=== PATIENT | male | born 1990 | race Caucasian/White ===

== ENCOUNTER 2016-06-04 12:27 | Emergency (ER) | payer OTHER ==
[~2016-06-04] VITALS: Ht 170.2 cm; Wt 66.4 kg
[2016-06-04 12:30] VITALS: TEMP 36.6; Ht 170.2 cm; Wt 66.4 kg
--- NOTE | 2016-06-04 13:44 | EMERGENCY ROOM VISIT NOTE ---
History First contact with patient: 13:14 Chief Complaint: CARDIAC ASSESSMENT Stated Complaint: CHEST DISCOMFORT/LUMP Nursing Triage Summary: Pt c/o lump on xyphoid process noticed it 1 month ago Pt c/o chest discomfort since 2010 Pt reports he has had ekgs which were neg pain is not getting better History of Present Illness The patient is a 26 year old male who presents to the Emergency Room with complaints of chest discomfort and a lump on his chest. The patient reports that he has had chest discomfort and difficulty taking a deep breath for the past 6 years. He states that one month ago, he noticed a lump in the center of his chest. He states it is slightly painful to touch at times. He states this causes a dull discomfort in his chest. He has never been seen by another provider for this. He does not have a primary care provider. He denies palpitations or syncopal episodes. He denies any lightheadedness denies any abdominal pain, nausea or vomiting. Review of Systems A complete 10-point Review of Systems was discussed with the patient, with pertinent positives and negatives listed in the History of Present Illness. All remaining Review of Systems questions can be considered negative unless otherwise specified. Social History Smoking Status: Never Smoker Current/Historical Medications No Active Prescriptions or Reported Meds Allergies Coded Allergies: Shellfish Allergy (Unverified Allergy, Severe, THROAT & LIP SWELLING, 06/04) Physical Exam Vital Signs Date Time Temp Pulse Resp B/P Pulse Ox O2 Delivery O2 Flow Rate FiO2 06/04/16 16:23 75 18 119/75 99 Room Air 06/04/16 14:43 73 16 111/69 97 Room Air 06/04/16 13:47 80 06/04/16 13:40 76 16 121/77 97 Room Air 06/04/16 13:34 Room Air 06/04/16 12:32 Room Air 06/04/16 12:30 36.6 78 18 126/82 96 Room Air Physical Exam VITALS: Vitals are noted on the nurse's note and reviewed by myself. Vital signs stable. GENERAL: This is a 26-year-old male, in no acute distress, nondiaphoretic, well- developed well-nourished. SKIN: Capillary reflex less than 2 seconds. HEENT: Normocephalic. PERRLA. EOMI. Nares patent. Mucous membranes moist. Neck is supple without nuchal rigidity. HEART: Regular rate and rhythm without murmurs gallops or rubs. LUNGS: Clear to auscultation bilaterally without wheezes, rales or rhonchi. No retractions or accessory muscle use. ABDOMEN: Positive bowel sounds x 4. Soft, nontender to palpation. MUSCULOSKELETAL: Mild pectus carinatum. NEURO: Patient was alert and oriented to person place and time. Medical Decision & Procedures ER Provider Diagnostic Interpretation: TWO VIEW CHEST IMPRESSION: No active disease in the chest. CT OF THE CHEST WITH IV CONTRAST IMPRESSION: 1. No evidence of focal pulmonary consolidation 2. No evidence of pathologic adenopathy 3. 4 mm noncalcified right upper lobe pulmonary nodule. In the absence of a primary malignancy, this is of doubtful clinical significance in a patient of this age. ABDOMEN AND PELVIS CT WITH IV CONTRAST IMPRESSION: No significant abnormality identified within the abdomen or pelvis. Laboratory Results 06/04/16 13:38 Red Blood Count 5.29, Mean Corpuscular Volume 83.7, Mean Corpuscular Hemoglobin 30.2, Mean Corpuscular Hemoglobin Concent 36.1, Mean Platelet Volume 10.4, Neutrophils (%) (Auto) 37.3, Lymphocytes (%) (Auto) 49.3, Monocytes (%) (Auto) 10.1, Eosinophils (%) (Auto) 2.2, Basophils (%) (Auto) 1.1, Neutrophils # (Auto ) 1.00, Lymphocytes # (Auto) 1.32, Monocytes # (Auto) 0.27, Eosinophils # (Auto ) 0.06, Basophils # (Auto) 0.03 06/04/16 13:38 Test 06/04/16 13:38 06/04/16 13:58 White Blood Count 2.68 K/uL (4.8-10.8) Red Blood Count 5.29 M/uL (4.7-6.1) Hemoglobin 16.0 g/dL (14.0-18.0) Hematocrit 44.3 % (42-52) Mean Corpuscular Volume 83.7 fL (80-100) Mean Corpuscular Hemoglobin 30.2 pg (25-34) Mean Corpuscular Hemoglobin Concent 36.1 g/dl (32-36) Platelet Count 278 K/uL (130-400) Mean Platelet Volume 10.4 fL (7.4-10.4) Neutrophils (%) (Auto) 37.3 % Lymphocytes (%) (Auto) 49.3 % Monocytes (%) (Auto) 10.1 % Eosinophils (%) (Auto) 2.2 % Basophils (%) (Auto) 1.1 % Neutrophils # (Auto) 1.00 K/uL (1.4-6.5) Lymphocytes # (Auto) 1.32 K/uL (1.2-3.4) Monocytes # (Auto) 0.27 K/uL (0.11-0.59) Eosinophils # (Auto) 0.06 K/uL (0-0.5) Basophils # (Auto) 0.03 K/uL (0-0.2) RDW Standard Deviation 38.0 fL (36.4-46.3) RDW Coefficient of Variation 12.7 % (11.5-14.5) Immature Granulocyte % (Auto) 0.0 % Immature Granulocyte # (Auto) 0.00 K/uL (0.00-0.02) Peripheral Blood Smear Path Consult Anion Gap 10.0 mmol/L (3-11) Est Creatinine Clear Calc Drug Dose 110.2 ml/min Estimated GFR () 127.5 Estimated GFR (Non- 110.0 BUN/Creatinine Ratio 17.0 (10-20) Calcium Level 9.2 mg/dl (8.5-10.1) Total Bilirubin 0.6 mg/dl (0.2-1) Aspartate Amino Transf (AST/SGOT) 10 U/L (15-37) Alanine Aminotransferase (ALT/SGPT) 14 U/L (12-78) Alkaline Phosphatase 92 U/L (45-117) Troponin I < 0.015 ng/ml (0-0.045) Total Protein 7.7 gm/dl (6.4-8.2) Albumin 4.4 gm/dl (3.4-5.0) Globulin 3.3 gm/dl (2.5-4.0) Albumin/Globulin Ratio 1.3 (0.9-2) Thyroid Stimulating Hormone (TSH) 1.890 uIu/ml (0.300-4.500) D-Dimer < 190 ug/L FEU (0-500) Lipase 92 U/L (73-393) ECG Rate (beats per minute): 65 Rhythm: normal sinus Findings: no acute ischemic change, no ectopy Comparison ECG Date: no prior available Medical Decision Differential diagnosis includes acute coronary syndrome, pulmonary embolism, pneumothorax, pericarditis, myocarditis, endocarditis, anxiety, musculoskeletal pain, malignancy, GERD, costochondritis, among others. The patient was evaluated as above. Labs were drawn and IV access was obtained. Imaging studies were performed and read by radiology as above. The patient was reassessed multiple times during their stay in the emergency department and remained in stable condition. The patient is a 26-year-old male who presents today complaining of chest plan. Labs revealed a mild leukopenia with no anemia or concerning electrolyte abnormalities. Troponin was not elevated. D-dimer was not elevated. EKG was interpreted by myself and showed a normal sinus rhythm with no ischemia or ectopy. Chest x-ray was unremarkable. CT of the chest and abdomen/pelvis were performed and read by radiology with no acute findings. The patient was encouraged to take Prilosec and follow-up with his primary care provider. Based on the patient's presentation, lab results, and imaging studies, I feel the patient is stable for outpatient treatment. Discharge instructions were reviewed with the patient. The patient verbalized understanding of my assessment and treatment plan and was discharged home in good condition. Impression Primary Impression: Non-cardiac chest pain Departure Information Dispostion Home / Self-Care Condition GOOD Prescriptions No Active Prescriptions or Reported Meds Referrals No Doctor, Assigned (PCP) Rajeev Block D.O. Patient Instructions [facility] Additional Instructions You have been treated in the Emergency Department for your suspected Gastroesophageal Reflux Disease or GERD for short. You should take Prilosec, 40 mg daily before food. This medication is over the counter. This is a drug that will help with any possible indigestion that might be contributing to your pain/discomfort. You should take this medicine EVERY day for the best results. This medicine is not intended to be used for immediate relief of symptoms, but rather to reduce the risk of recurrence of symptoms. You can consider using TUMS for relief of any indigestion that you might be experiencing. This drug is fast acting and can be used for immediate relief of your indigestion symptoms. You should eat a bland diet for the next few days. Some suggested bland dietary foods: Bananas, Rice, Applesauce, [place], or Boiled Chicken. These foods are easy to digest and help you to recover at a faster rate. All meals for the next few days should be small to track repairer helper in bowel rest. For pain control, you can use the following [id number] medicines (if >12 yo): - Regular strength (325mg/tab) Tylenol (acetaminophen) 2 tabs every 4-6 hours as needed. Do not exceed 12 tablets in a 24 hour period. Avoid taking more than 4 grams (4000 mg) of Tylenol per day. This includes any other sources of acetaminophen you may take on a regular basis. - Regular strength (200 mg/tab) Advil (ibuprofen) 1-2 tabs every 4-6 hours as needed. Do not exceed a dose of 3200 mg per day. You should schedule a follow-up appointment with your Primary Care Provider in 2 -3 days for further evaluation from today's Emergency Department visit. Your white blood cell count was found to be low. You should follow up with a forming roll operator regarding this. Return to the Emergency Department if your current symptoms worsen despite treatment course outlined above, or if you develop any of the following symptoms : worsening abdominal pain, associated chest or back pain, worsening nausea/ vomiting, dizziness, shortness of breath, blood in your vomit, or fainting.
[2016-06-04 13:54] LABS: BASO % 1.1 %; BASO ABS # 0.03 K/uL (0-0.2); COMPLETE YES; EOS % 2.2 %; HEMATOCRIT 44.3 % (42-52); LYMPH % 49.3 %; LYMPH ABS # 1.32 K/uL (1.2-3.4); MEAN CELL VOLUME 83.7 fL (80-100); MEAN CORPUSCULAR HEMOGLOBIN 30.2 pg (25-34); MEAN CORPUSCULAR HGB CONC 36.1 g/dl (32-36); MEAN PLATELET VOLUME 10.4 fL (7.4-10.4); MONO % 10.1 %; NEUT % 37.3 %; PLATELET COUNT 278 K/uL (130-400); RED BLOOD COUNT 5.29 M/uL (4.7-6.1); WHITE BLOOD COUNT 2.68 K/uL (4.8-10.8)
--- NOTE | 2016-06-04 14:08 | DIAGNOSTIC IMAGING REPORT ---
TWO VIEW CHEST CLINICAL HISTORY: Atypical chest pain. Dyspnea. FINDINGS: PA and lateral chest radiographs are obtained. No prior studies are available for comparison at the time of dictation. The cardiomediastinal silhouette is unremarkable. The lungs and pleural spaces are clear. There is no pneumothorax. The bony thorax appears intact. IMPRESSION: No active disease in the chest. Electronically signed by: Korey Castro M.D. 06/04/2016 2:07 PM Dictated Date/Time: 06/04/2016 2:06 PM
[2016-06-04 14:14] LABS: ALT/SGPT 14 U/L (12-78); AST/SGOT 10 U/L (15-37); BLOOD UREA NITROGEN 16 mg/dl (7-18); CALCIUM 9.2 mg/dl (8.5-10.1); CARBON DIOXIDE 26 mmol/L (21-32); CHLORIDE 105 mmol/L (98-107); CREATININE 0.95 mg/dl (0.60-1.40); GLUCOSE 88 mg/dl (70-99); POTASSIUM 3.8 mmol/L (3.5-5.1); SODIUM 141 mmol/L (136-145)
[2016-06-04 14:26] LABS: ALB/GLOB RATIO 1.3 (0.9-2); ALKALINE PHOSPHATASE 92 U/L (45-117)
--- NOTE | 2016-06-04 15:01 | EMERGENCY ROOM VISIT NOTE ---
ED Visit Note First contact with patient: 13:14 I did evaluate and examine this patient myself. I did guide management for the patient. I agree with the PA's assessment as discussed. Please see the PAs dictation for further details. I did independently review the 12-lead EKG, x- rays, CT scans and blood work. He is presenting with 2 months of discomfort in the epigastric and lower chest region. He does state that he has had some unintentional weight loss but cannot quantify it. He denies any fever or recent illness. He is slightly neutropenic here and has no prior history. He was advised follow up closely with his doctor as well as a catalogue librarian for further evaluation.
[2016-06-04] MEDS ORDERED: OPTIRAY 320 IV PRN (15:30)
--- NOTE | 2016-06-04 16:03 | DIAGNOSTIC IMAGING REPORT ---
CT OF THE CHEST WITH IV CONTRAST CLINICAL HISTORY: Chest and epigastric pain. COMPARISON STUDY: Chest x-ray dated 06/04/2016 TECHNIQUE: Following the IV administration of 92 mL of Optiray-320, CT of the thorax was performed from the thoracic inlet to the lung bases. Images are reviewed in the axial, sagittal, and coronal planes. IV contrast was administered without complication. CT DOSE: FINDINGS: Thyroid: Imaged portions of the thyroid gland are normal in appearance. Thoracic aorta: The thoracic aorta is normal in course and caliber, noting standard 3-vessel arch anatomy. No aneurysm or dissection is seen. Pulmonary vasculature: The pulmonary trunk is normal in caliber. There are no central filling defects identified to suggest pulmonary embolus. Note that this examination was not protocoled for the evaluation of pulmonary emboli. HEART: The heart is normal in size and configuration, without pericardial effusion. Lungs and pleural spaces: No pleural effusions are visualized. There is no pneumothorax. There is no focal pulmonary consolidation. There is a 4 mm noncalcified right upper lobe pulmonary nodule as visualized in image #[id number]. In the absence of a known primary malignancy, this is of doubtful clinical significance in a patient of this age. Also evident is a 5 mm calcified granuloma within the left upper lobe. There is also a 3 mm pleural-based right middle lobe nodule as visualized in image #[id number]. Mediastinum: There is no mediastinal lymphadenopathy. Lore: Clear. Axilla: Clear. Upper abdomen: Partially visualized upper abdominal viscera is within normal limits. Skeletal structures: There are no lytic or blastic osseous lesions. IMPRESSION: 1. No evidence of focal pulmonary consolidation 2. No evidence of pathologic adenopathy 3. 4 mm noncalcified right upper lobe pulmonary nodule. In the absence of a primary malignancy, this is of doubtful clinical significance in a patient of this age. Electronically signed by: Efrain Nino M.D. 06/04/2016 4:02 PM Dictated Date/Time: 06/04/2016 3:57 PM
--- NOTE | 2016-06-04 16:08 | DIAGNOSTIC IMAGING REPORT ---
ABDOMEN AND PELVIS CT WITH IV CONTRAST CT DOSE: 517.21 mGy.cm HISTORY: epigastric/chest discomfort, fullness, r/o mass TECHNIQUE: Multiaxial CT images of the abdomen and pelvis were performed following the use of intravenous contrast. COMPARISON STUDY: None. FINDINGS: The lung bases are clear. The liver, spleen, gallbladder, pancreas, kidneys, and adrenal glands are within normal limits. No bowel wall thickening or obstruction. The pelvic organs are unremarkable. No suspicious lytic or blastic osseous lesions. Normal appendix. IMPRESSION: No significant abnormality identified within the abdomen or pelvis. Electronically signed by: Emery Syed M.D. 06/04/2016 4:07 PM Dictated Date/Time: 06/04/2016 3:59 PM
[2016-06-04 16:23] VITALS: BP 119/75; PULSE 75; O2SAT 99
== END 2016-06-04 16:45 | disposition home or self-care (01) ==
LOC: C.EDB 12:28
DX: R07.89 Other chest pain (principal); R10.13 Epigastric pain; Z91.018 Allergy to other foods

== ENCOUNTER 2016-06-16 02:36 | Inpatient (IN) | payer OTHER ==
[~2016-06-16] VITALS: Ht 162.6 cm; Wt 67.1 kg
[2016-06-16] VITALS (12 sets, daily range): BP systolic 83–124; BP diastolic 45–72; PULSE 78–100; TEMP 36.4–36.5; O2SAT 93–100; Ht 162.6 cm; Wt 67.1 kg
[~2016-06-16 02:36] MED LIST: HALOPERIDOL LACTATE 5 MG/ML 1 ML VIAL ONE
[2016-06-16] MEDS ORDERED: PROPOFOL IV EMULSION 10 MG/ML 20 ML VIAL IV ONE (02:40)
[2016-06-16] MEDS ORDERED: RAPID SEQUENCE INDUCTION BAG ONE (02:41)
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
[2016-06-16] MEDS ORDERED: PROPOFOL IV EMULSION 10 MG/ML 100 ML VIAL IV PRN ×2 (03:00→09:00)
[2016-06-16] MEDS ORDERED: OPTIRAY 320 IV PRN (03:15)
[2016-06-16] MEDS ORDERED: MIDAZOLAM HCL 1 MG/ML 2ML VIAL ONE (03:17)
[2016-06-16] MEDS ORDERED: FENTANYL CITRATE INJ 50 MCG/1 ML 2 ML VIAL ONE ×3 (03:17→05:37)
[2016-06-16 03:21] LABS: HEMATOCRIT 42.5 % (42-52); MEAN CELL VOLUME 83.5 fL (80-100); MEAN CORPUSCULAR HEMOGLOBIN 30.8 pg (25-34); MEAN CORPUSCULAR HGB CONC 36.9 g/dl (32-36); MEAN PLATELET VOLUME 10.5 fL (7.4-10.4); PLATELET COUNT 222 K/uL (130-400); RED BLOOD COUNT 5.09 M/uL (4.7-6.1); WHITE BLOOD COUNT 3.05 K/uL (4.8-10.8)
[2016-06-16 03:26] LABS: ALT/SGPT 11 U/L (12-78); AST/SGOT 9 U/L (15-37); BLOOD UREA NITROGEN 11 mg/dl (7-18); BUN/CREATININE RATIO 9.8 (10-20); CALCIUM 8.2 mg/dl (8.5-10.1); CARBON DIOXIDE 22 mmol/L (21-32); CHLORIDE 107 mmol/L (98-107); GLUCOSE 129 mg/dl (70-99); POTASSIUM 3.1 mmol/L (3.5-5.1); SODIUM 146 mmol/L (136-145)
[2016-06-16] MEDS ORDERED: FENTANYL 1250MCG/250ML NSS 250 ML IV PRN (03:30)
[2016-06-16 03:31] LABS: ALKALINE PHOSPHATASE 90 U/L (45-117)
[2016-06-16 03:50] LABS: BASO ABS # 0.03 K/uL (0-0.2); BASOPHIL % 0.9 % (0-2); COMPLETE YES; EOSINOPHIL % 1.8 %; LYMPHOCYTE % 39.3 %; NEUTROPHILS % 36.6 %; VARIANT LYM ABS # 0.38 K/uL; VARIANT LYMPHOCYTE % 12.5 %
[2016-06-16 04:57] LABS: MAGNESIUM 2.1 mg/dl (1.8-2.4)
[2016-06-16] MEDS ORDERED: NSS + 20MEQ KCL 1000ML 1,000 ML IV SCH (05:09)
[2016-06-16] MEDS ORDERED: LORAZEPAM 2 MG/ML 1 ML VIAL IV PRN ×2 (05:15)
[2016-06-16] MEDS ORDERED: FENTANYL 1250MCG/250ML NSS 250 ML IV SCH (05:15)
[2016-06-16 05:30] LABS: ALLEN TEST POS (POS); ARTERIAL BLD GAS O2 SATURATION 98.4 % (90-95); ARTERIAL BLOOD GAS BASE EXCESS -5.6 mEq/L (-9-1.8); ARTERIAL BLOOD GAS HCO3 22 mmol/L (19-24); ARTERIAL BLOOD GAS PO2 131 mm/Hg (80-95); ARTERIAL BLOOD GAS pH 7.26 (7.35-7.45); O2 ADMINISTRATION 2 L
[2016-06-16] MEDS ORDERED: GLUCAGON FOR INJ 1 MG VIAL SQ PRN (05:30)
[2016-06-16] MEDS ORDERED: GLUCOSE 10 TABS/TUBE PO PRN (05:30)
[2016-06-16] MEDS ORDERED: DEXTROSE 50% 50 ML SYR IV PRN (05:30)
[2016-06-16] MEDS ORDERED: GLUCOSE 40% GEL 15 GM TUBE PO PRN (05:30)
[2016-06-16] MEDS ORDERED: MIDAZOLAM HCL 5 MG/ML 1 ML VIAL IV STA (05:36)
[2016-06-16] MEDS ORDERED: MIDAZOLAM HCL 5 MG/ML 2ML VIAL ONE (05:37)
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
[2016-06-16] MEDS ORDERED: SODIUM CHLORIDE 0.9% 1000ML 1,000 ML IV STA (05:46)
[2016-06-16 05:55] LABS: URINE APPEARANCE CLEAR (CLEAR); URINE BILIRUBIN NEG (NEG); URINE COLOR YELLOW; URINE EPITHELIAL CELL AUTO >30 /lpf (0-5); URINE NITRITE NEG (NEG); URINE SPECIFIC GRAVITY 1.025 (1.000-1.030); UROBILINOGEN NEG (NEG); ZZURINE CULT IF INDIC CATH NO
[2016-06-16 06:03] LABS: MANUAL MICROSCOPIC REQUIRED? NO; REVIEW REQ? NO
[2016-06-16 06:15] LABS: BENZODIAZEPINE, URINE POS (NEG); COCAINE,URINE NEG (NEG); PHENCYCLIDINE, URINE NEG (NEG)
[2016-06-16] MEDS: INSULIN ASPART 100 UNITS/ML 3 ML PEN SC SCH ×2 (06:45→11:00)
[2016-06-16] MEDS ORDERED: D5W AND 1/2NSS + 20MEQ KCL 1,000 ML IV SCH (06:45)
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
[2016-06-16] MEDS ORDERED: INFLUENZA VIRUS QUAD VACCINE 0.5 ML SYR IM. ONE (08:00)
[2016-06-16] MEDS ORDERED: INFLUENZA ADMINISTRATION CHARGE ONE (08:00)
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
[2016-06-16] MEDS ORDERED: POTASSIUM CHLORIDE 20 MEQ/15 ML UDC PO ONE (08:15)
--- NOTE | 2016-06-16 08:41 | DIAGNOSTIC IMAGING REPORT ---
KUB CLINICAL HISTORY: Enteric tube placement. FINDINGS: An AP, portable, supine abdominal radiographs is correlated with abdominal CT performed the same day 06/16/2016. An enteric tube has been placed. The tip projects over the gastric fundus. There is a nonobstructed abdominal bowel gas pattern. No evidence of intraperitoneal free air is seen on this supine view. There are no abnormal abdominal calcifications. The bony structures appear intact. IMPRESSION: 1. An enteric tube has been placed. The tip projects over the gastric fundus. 2. Nonobstructed abdominal bowel gas pattern. Electronically signed by: Korey Castro M.D. 06/16/2016 8:40 AM Dictated Date/Time: 06/16/2016 8:39 AM
[2016-06-16 08:43] LABS: ISTAT ALLEN TEST Pass; ISTAT ARTERIAL BLOOD GAS HCO3 21 meq/L (19-24); ISTAT ARTERIAL BLOOD GAS PCO2 42 mmHg (35-46); ISTAT ARTERIAL BLOOD GAS PO2 287 mmHg (80-95); ISTAT ARTERIAL BLOOD GAS pH 7.31 (7.35-7.45); ISTAT CARBON DIOXIDE 23 mEq/l (24-31); ISTAT DELIVERY SYSTEM Ventilator; ISTAT FIO2 60 %; ISTAT PEEP 5; ISTAT RATE 14; ISTAT SITE L Radial; VE 6.4; Vt 500
[2016-06-16] MEDS ORDERED: SODIUM CHLOR 0.45% + 20MEQ KCL 1,000 ML IV SCH (09:00)
[2016-06-16] MEDS ORDERED: PANTOprazole INJ 40 MG in SYRINGE 0 ML IV SCH (09:00)
[2016-06-16] MEDS ORDERED: SODIUM CHLORIDE 0.9% 1000ML 1,000 ML IV SCH (09:00)
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
[2016-06-16 11:00] LABS: INR 1.1 (0.9-1.1); PARTIAL THROMBOPLASTIN RATIO 0.9; PROTHROMBIN TIME (PATIENT) 11.4 SECONDS (9.0-12.0)
--- NOTE | 2016-06-16 12:36 | Discharge Instructions ---
Discharge Instructions Admission Reason for Admission: Ams, Drug Overdose Discharge Discharge Diagnosis / Problem: encephalopathy, suspected toxic, facial abrasions Discharge Goals Goal(s): Diagnostic testing, Therapeutic intervention Activity Recommendations Activity Limitations: resume your previous activity . Instructions / Follow-Up Instructions / Follow-Up wash abrasion with soap and water once a day, use antibiotic ointment to keep from drying out Current Hospital Diet Patient's current hospital diet: Regular Diet Discharge Diet Recommended Diet: Regular Diet Pending Studies Studies pending at discharge: no Medical Emergencies . Who to Call and When: Medical Emergencies: If at any time you feel your situation is an emergency, please call 911 immediately. . Non-Emergent Contact Non-Emergency issues call your: Primary Care Provider Call Non-Emergent contact if: temperature is above 101, your pain is worsening . . "Provider Documentation" section prepared by Zeeshan Amador. VTE Core Measure Inpt VTE Proph given/why not?: SCD's
[2016-06-16] MEDS ORDERED: ENOXAPARIN 40 MG/0.4 ML SYR SQ SCH (13:00)
[2016-06-16] MEDS ORDERED: ROCURONIUM BROMIDE 10 MG/ML 10 ML VIAL IV ONE (13:31)
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
[2016-06-18 16:32] LABS: HYDROXYETHYLFLURAZEPAM CONF NEGATIVE NG/ML (CUTOFF=50); HYDROXYMIDAZOLAM >2000 NG/ML (CUTOFF=50); HYDROXYTRIAZOLAM CONF NEGATIVE NG/ML (CUTOFF=50); TEMAZEPAM CONF NEGATIVE NG/ML (CUTOFF=50)
== END 2016-06-16 13:32 | DRG 917 ==
LOC: ENRESERVTM → ENRESERVDT → EDBD 02:36 → C.EDA 02:38 → C.MSICU 05:08
PROVIDERS: ADMIT Hospitalist; ATTEND Internal Medicine
PROC: 5A1935Z Respiratory Ventilation, Less than 24 Consecutive Hours (ICD-10-PCS; principal; 2016-06-16)
DX: T51.0X1A Toxic effect of ethanol, accidental (unintentional), initial encounter (principal); G92 Toxic encephalopathy; F10.129 Alcohol abuse with intoxication, unspecified; R45.6 Violent behavior; S00.81XA Abrasion of other part of head, initial encounter; Y04.0XXA Assault by unarmed brawl or fight, initial encounter; E87.6 Hypokalemia; Z87.820 Personal history of traumatic brain injury; Z86.59 Personal history of other mental and behavioral disorders; Z83.3 Family history of diabetes mellitus